=== PATIENT | male | born 1975 | race American Indian/Alaskan Native ===

== ENCOUNTER 2021-03-05 00:29 | Emergency (ER) | payer SELFPAY ==
[2021-03-05] MEDS ORDERED: LORazepam 2 MG/ML VIAL IV ONE (01:04)
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
--- NOTE | 2021-03-05 01:56 | Cat Scan Report ---
CT HEAD WITHOUT CONTRAST INDICATION / CLINICAL INFORMATION: Medical Clearance Psych. TECHNIQUE: All CT scans at this location are performed using CT dose reduction for ALARA by means of automated exposure control. COMPARISON: None available. FINDINGS: HEMORRHAGE: None. EXTRA-AXIAL SPACES: Normal in size and morphology for the patient's age. VENTRICULAR SYSTEM: Normal in size and morphology for the patient's age. CEREBRAL PARENCHYMA: No significant abnormality. No acute territorial infarct. MIDLINE SHIFT / HERNIATION: None. CEREBELLUM / BRAINSTEM: No significant abnormality. ORBITS: Normal as visualized. SOFT TISSUES: No significant abnormality. SKULL: No significant abnormality. PARANASAL SINUSES / MASTOID AIR CELLS: Normal as visualized. ADDITIONAL FINDINGS: None. IMPRESSION: 1. No acute intracranial abnormality. Signer Name: Saman Burks MD Signed: 03/05/2021 1:51 AM Workstation Name: [id number]
[2021-03-05 02:02] LABS: Basophils % (Auto) 0.1 % (0.0-1.8); Eosinophils % (Auto) 0.3 % (0.0-4.3); Hematocrit 36.4 % (35.5-45.6); Hemoglobin 12.1 gm/dl (11.8-15.2); Lymphocytes # (Auto) 1.9 K/mm3 (1.2-5.4); Lymphocytes % (Auto) 32.8 % (13.4-35.0); Mean Corpuscular HGB Conc 33 % (32-34); Mean Corpuscular Volume 86 fl (84-94); Monocytes # (Auto) 0.5 K/mm3 (0.0-0.8); Monocytes % (Auto) 8.5 % (0.0-7.3); Platelet Count 195 K/mm3 (140-440); Red Blood Count 4.22 M/mm3 (3.65-5.03)
[2021-03-05 02:12] LABS: BUN/Creatinine Ratio 23; Blood Urea Nitrogen 21 mg/dL (9-20); Calcium 8.9 mg/dL (8.4-10.2); Hemolysis Index 3
--- NOTE | 2021-03-05 02:57 | XRay Report ---
CHEST 1 VIEW 03/05/2021 2:35 AM INDICATION / CLINICAL INFORMATION: Medical Clearance Psych. COMPARISON: None available. FINDINGS: SUPPORT DEVICES: None. HEART / MEDIASTINUM: No significant abnormality. LUNGS / PLEURA: No significant pulmonary or pleural abnormality. No pneumothorax. ADDITIONAL FINDINGS: No significant additional findings. IMPRESSION: 1. No acute findings. Signer Name: Saman Burks MD Signed: 03/05/2021 2:53 AM Workstation Name: [id number]
[2021-03-05] MEDS ORDERED: SODIUM CHLORIDE 0.9% 1000 ML 1,000 ML IV ONE (06:23)
--- NOTE | 2021-03-05 10:48 | Event Note ---
Date: 03/05/21 S: Patient had transient drop in blood pressure after Ativan overnight which responded to fluids. Complained of left facial pain from abrasion. Otherwise no events overnight O: Vital Signs 03/05/21 03/05/21 03/05/21 00:46 01:00 01:12 Temperature 97.6 F Pulse Rate 62 Respiratory 16 Rate Blood Pressure 123/76 O2 Sat by Pulse 99 98 Oximetry 03/05/21 03/05/21 03/05/21 01:16 01:30 01:46 Temperature Pulse Rate 61 63 64 Respiratory 15 16 19 Rate Blood Pressure 128/85 128/85 100/64 O2 Sat by Pulse 98 99 98 Oximetry 03/05/21 03/05/21 03/05/21 02:00 02:16 02:30 Temperature Pulse Rate 65 67 71 Respiratory 17 17 18 Rate Blood Pressure 112/73 125/85 105/67 O2 Sat by Pulse 98 98 97 Oximetry 03/05/21 03/05/21 03/05/21 02:46 03:00 03:16 Temperature Pulse Rate 61 63 70 Respiratory 15 17 17 Rate Blood Pressure 105/67 99/55 105/67 O2 Sat by Pulse 99 98 97 Oximetry 03/05/21 03/05/21 03/05/21 03:30 03:46 04:00 Temperature Pulse Rate 61 62 66 Respiratory 15 17 17 Rate Blood Pressure 106/73 106/73 99/69 O2 Sat by Pulse 99 99 99 Oximetry 03/05/21 03/05/21 03/05/21 04:16 04:30 04:46 Temperature Pulse Rate 59 L 58 L 58 L Respiratory 14 16 16 Rate Blood Pressure 99/69 83/49 83/49 O2 Sat by Pulse 97 98 98 Oximetry 03/05/21 03/05/21 03/05/21 05:00 05:16 05:30 Temperature Pulse Rate 55 L 59 L 59 L Respiratory 14 15 18 Rate Blood Pressure 92/54 92/54 103/75 O2 Sat by Pulse 97 97 98 Oximetry 03/05/21 03/05/21 03/05/21 05:46 06:00 06:16 Temperature Pulse Rate 53 L 54 L 50 L Respiratory 18 15 13 Rate Blood Pressure 103/75 97/58 97/58 O2 Sat by Pulse 100 100 98 Oximetry 03/05/21 03/05/21 03/05/21 07:00 08:00 09:00 Temperature Pulse Rate 56 L 59 L Respiratory 17 16 Rate Blood Pressure 94/47 109/77 104/70 O2 Sat by Pulse 98 100 99 Oximetry 03/05/21 10:00 Temperature Pulse Rate 65 Respiratory 16 Rate Blood Pressure 111/70 O2 Sat by Pulse 100 Oximetry A: Psychosis P: Awaiting psych eval
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
[2021-03-05 13:34] VITALS: BP 133/76
--- NOTE | 2021-03-07 09:12 | Electrocardiograph Report ---
[facility] Test Date: 2021-03-05 Test Time: 00:47:08 Pat Name: TARIQ DING Department: Room: Gender: M Inspector Set Up And Lay Out: JUAN : 1975 Requested By: ABHIJEET MITCHELL Order Number: [id number] Reading MD: Mark Duran Measurements Intervals Stella Rate: 69 P: 72 IA: 147 QRS: 77 QRSD: 84 T: 60 QT: 384 QTc: 411 Interpretive Statements Sinus arrhythmia BORDERLINE ST Elevation No previous ECG available for comparison Electronically Signed On 03-07-2021 9:12:43 EDT by Mark Duran
== END 2021-03-05 13:33 | disposition home or self-care (01) ==
LOC: ED 00:29
DX: F29 Unspecified psychosis not due to a substance or known physiological condition (principal); F19.10 Other psychoactive substance abuse, uncomplicated; R94.6 Abnormal results of thyroid function studies
CPT/HCPCS: 36415; 70450; 71045; 80048; 84443; 85025; 93005; 96374; 99284; J2060; 80320; G0480